=== PATIENT | female | born 1975 | race African-American/Black ===

== ENCOUNTER 2021-09-28 11:23 | Emergency (ER) | payer OTHER ==
[~2021-09-28] VITALS: Ht 182.9 cm; Wt 95.3 kg
[~2021-09-28 11:23] MED LIST: HYDROCODONE-AP1 EAC6 PO
[2021-09-28 11:40] VITALS: BP 161/102
[2021-09-28] MEDS ORDERED: NORCO5 PO (13:54)
[2021-09-28] MEDS ORDERED: ARTHRITIS PAIN100 GM TOP (13:54)
== END 2021-09-28 14:31 | disposition home or self-care (01) ==
LOC: ER 11:23
DX: S66.912A Strain of unspecified muscle, fascia and tendon at wrist and hand level, left hand, initial encounter (principal); S80.02XA Contusion of left knee, initial encounter; S80.01XA Contusion of right knee, initial encounter; I10 Essential (primary) hypertension; F17.210 Nicotine dependence, cigarettes, uncomplicated; F12.90 Cannabis use, unspecified, uncomplicated; Z88.5 Allergy status to narcotic agent; W01.0XXA Fall on same level from slipping, tripping and stumbling without subsequent striking against object, initial encounter; Y93.89 Activity, other specified; Y92.89 Other specified places as the place of occurrence of the external cause; Y99.8 Other external cause status

== ENCOUNTER 2021-12-27 15:28 | Emergency (ER) | payer OTHER ==
[~2021-12-27] VITALS: Ht 182.9 cm; Wt 90.7 kg
[~2021-12-27 15:28] MED LIST changes: +ARTHRITIS PAIN100 GM TOP; +NORCO5 PO
[2021-12-27 16:05] LABS: ABSOLUTE NEUTROPHILS 3.2 thou/uL (1.4-8.2); BASOPHILS 0.8 % (0.0-2.0); EOSINOPHILS 3.5 % (0.0-3.0); HEMATOCRIT 44.4 % (37.0-47.0); HEMOGLOBIN 14.6 gm/dL (12.0-15.0); LYMPHOCYTES 38.8 % (24.0-44.0); MCH 28.8 pg (26.0-34.0); MCHC 32.9 g/dL (28.0-37.0); MCV 87.5 fL (80.0-100.0); MONOCYTES 7.4 % (1.0-8.0); PLATELET COUNT 230 thou/uL (150-400); POLYS 49.5 % (36.0-66.0); RBC 5.08 mil/uL (4.20-5.00); RDW 15.5 % (10.5-14.5); WBC 6.4 thou/uL (4.0-11.0)
[2021-12-27 16:10] LABS: CALCIUM 9.5 mg/dL (8.5-10.1); CREATININE 1.2 mg/dL (0.6-1.0); POTASSIUM 3.5 mmol/L (3.5-5.1)
[2021-12-27] MEDS ORDERED: PREDNISONE 20 M20 MG PO (16:37)
[2021-12-27] MEDS ORDERED: ACYCLOVIR 800800 MG PO (16:37)
[2021-12-27] MEDS ORDERED: ARTIFICIALS TEA30 ML RT. EYE (16:37)
[2021-12-27 17:04] VITALS: BP 135/91
--- NOTE | 2021-12-28 11:04 | EKG ---
[address] [place] [address] ELECTROCARDIOGRAM REPORT Name: SY MONTOYA Room #: [facility] Skylar#: [id number] Admission: 12/27/21 Attend Phys: Discharge: 12/27/21 Date of : 73 Report #: [id number] [facility] ED Test Date: 2021-12-27 Test Time: 16:28:24 Pat Name: SY MONTOYA Department: Room: Gender: F [employer]er: : 1975 Requested By: Roberto Maynard Order Number: [id number] MD: Case Barnett Measurements Intervals [place] Rate: 63 P: 63 CO: 170 QRS: 26 QRSD: 92 T: 50 QT: 458 QTc: 469 Interpretive Statements Sinus rhythm Normal tracing No previous ECG available for comparison Electronically Signed On 12-28-2021 11:04:13 [employer] by Case Barnett [email or web address] <ELECTRONICALLY SIGNED> By: Case Barnett MD, [facility] 12/28/21 1104 1628 1628 Case Barnett MD, FACC /EPI
== END 2021-12-27 17:05 | disposition home or self-care (01) ==
LOC: ER 15:28
PROVIDERS: Emergency Medicine
DX: G51.0 Bell's palsy (principal); F17.210 Nicotine dependence, cigarettes, uncomplicated; I10 Essential (primary) hypertension; Z88.5 Allergy status to narcotic agent